=== PATIENT | female | born 1980 | race Caucasian/White ===

== ENCOUNTER 2017-11-20 11:50 | Emergency (ER) | payer MEDICAID, SELFPAY ==
[2017-11-20 11:52] VITALS: BP 123/84; PULSE 83; RESP 17; TEMP 36.8; O2SAT 95; BMI 25.6
--- NOTE | 2017-11-20 12:47 | ED.DCSUM_ITS ---
- ER Visit Summary Date of Service: 11/20/17 Chief Complaint: Facial skin lesions History of Present Illness: The patient is a 37 F who has had abscesses before. She started with a left cheek her right cheek and above her right eye on her right forehead and eyebrow. This is caused swelling. Mild redness. No fever. No drainage. She has had a prior history. She states she is allergic to Bactrim caused her to have a rash. Physical Examination: Well-appearing young female. Vital signs are stable afebrile. H EENT exam pupils round reactive light extra motions are intact. No pain with movement. No palsy. Her right eyebrow forehead there is a skin infection but no fluctuance. It is because swelling around her right eye. There is no proptosis. She also has a similar lesion on her left cheek and right cheek but none of these are fluctuant. The skin is firm and mildly tender. The. Lungs clear to auscultation. Heart regular rhythm no murmur. Abdomen soft nontender. Moving all 4 extremities. Neurovascular intact. Neurologically she is awake and alert with no focal motor deficits. Test Results: None Emergency Department Course and Treatment: Clindamycin 4 times daily for 10 days. Warm compresses. Patient understands that nothing needs to be incised and drained at this time. There is no fluctuance. Return if they get worse. Treatment Plan: Clindamycin 4 times daily. Follow-up with her doctor. Disposition: Discharge Impression: Facial abscesses This note was generated with [employer] dictation software. It may contain incorrect words, spelling, and punctuation that were not noted in review of the chart prior to signing ED Disposition - Plan for ED Patient: Chief Complaint: Eye Problem Referrals: Shira Arcos DO [Primary Care Provider] -
--- NOTE | 2017-11-20 12:47 | ED.DEP ---
ED Disposition - Plan for ED Patient: Disposition: Home or Assisted Living Chief Complaint: Eye Problem Instructions: ED Staph Infec Abx Tx Only Prescriptions: Clindamycin [Cleocin] 300 mg PO 4X/DAY 10 Days cap Referrals: Shira Arcos DO [Primary Care Provider] - 3-5 Days if not improving Additional Instructions: Tylenol and Motrin for pain. Warm compresses to the facial areas of infection. Clindamycin 2 pills 4 times a day for 10 days. Return to ER if doing worse. At this time these do not need to be drained but if not getting better they may.
[2017-11-20 12:54] VITALS: PULSE 82; RESP 17; O2SAT 94
== END 2017-11-20 13:00 | disposition home or self-care (01) ==
LOC: ED 12:59
PROVIDERS: Emergency Provider Emergency Medicine; Family Provider Family Medicine; PCP Family Medicine
DX: L02.01 Cutaneous abscess of face (principal); B96.89 Other specified bacterial agents as the cause of diseases classified elsewhere; Z72.0 Tobacco use
CPT/HCPCS: 99283

== ENCOUNTER → 2019-03-21 14:30 | Outpatient (CLI) | payer MEDICAID, SELFPAY ==
[2019-03-22 15:46] LABS: Chlamydia Trachomatis by PCR Negative (Negative); Neisserai gonorrhoeae by PCR Negative (Negative); Probe Check PASS; Sample Adequacy Control PASS; Specimen Processing Control PASS
== END ==
PROVIDERS: Visit Provider Obstetrics & Gynecology
DX: Z11.3 Encounter for screening for infections with a predominantly sexual mode of transmission (principal)
CPT/HCPCS: 87491; 87591